=== PATIENT | male | born 1945 | race Caucasian/White ===

== ENCOUNTER 2018-07-09 15:01 | Inpatient (IN) | payer MEDICARE ==
[~2018-07-09] VITALS: Ht 180.3 cm; Wt 110.2 kg
--- NOTE | 2018-07-09 15:34 | NUR ---
Pt presents to ED for CP starting at 1100. Pt states significant hx of CAD. Pain relieved by nitro x1. 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 Pt in NSR at this time. NAD.
[2018-07-09 15:38] LABS: BASOPHILS # (AUTO) 0.04 x10^3/uL (0-0.1); BASOPHILS % (AUTO) 1 % (0-1); EOSINOPHILS % (AUTO) 1 % (1-7); LYMPHOCYTES # (AUTO) 2.03 x10^3/uL (1-3.4); LYMPHOCYTES % (AUTO) 25 % (22-44); MD NO; MEAN CORPUSCULAR HEMOGLOBIN 28.6 pg (27.5-34.5); MEAN CORPUSCULAR HGB CONC 33.2 g/dL (33.2-36.2); MEAN CORPUSCULAR VOLUME 86.3 fL (81-97); MEAN PLATELET VOLUME 9.3 fL (7.4-10.4); MONOCYTES # (AUTO) 0.77 x10^3/uL (0.2-0.8); MONOCYTES % (AUTO) 10 % (2-9); NEUTROPHILS # (AUTO) 5.22 x10^3/uL (1.8-6.8); NEUTROPHILS % (AUTO) 64 % (42-75); PLATELET COUNT 207 x10^3/uL (130-400); RED BLOOD COUNT 5.11 x10^6/uL (4.38-5.82); RED CELL DISTRIBUTION WIDTH 14.1 % (9.4-14.8)
[2018-07-09] MEDS ORDERED: METO50TA82 PO (15:42)
[2018-07-09] MEDS ORDERED: LOSA25TA25 PO (15:42)
[2018-07-09 15:45] LABS: ALANINE AMINOTRANSFERASE 31 U/L (12-78); ALBUMIN 4.1 g/dL (3.4-5.0); ANION GAP 7 mmol/L (5-15); CALCIUM 8.8 mg/dL (8.5-10.1); CHLORIDE 105 mmol/L (98-107); CREATININE 1.02 mg/dL (0.7-1.3)
[2018-07-09 15:49] LABS: ALKALINE PHOSPHATASE 70 U/L (45-117); BILIRUBIN,TOTAL 0.3 mg/dL (0.2-1.0); TOTAL PROTEIN 7.2 g/dL (6.4-8.2)
[2018-07-09 15:55] LABS: TROPONIN I 0.212 ng/mL (0.000-0.045)
[2018-07-09] MEDS ORDERED: HEPARIN 5,000 UNITS/ML, 1ML IV ONE (16:30)
[2018-07-09] MEDS ORDERED: HEPARIN 25,000 UNITS/500ML PMX 500 ML IV PRN (16:30)
[2018-07-09 16:31] LABS: INTERNATIONAL NORMALIZED RATIO 1.01 (0.93-1.1); PROTHROMBIN TIME 10.6 Seconds (9.6-11.5)
--- NOTE | 2018-07-09 16:41 | NUR ---
BEER BREWER AT BEDSIDE. ANTIXA ORDERED PRIOR TO HEPARIN STARTING.
[2018-07-09] MEDS ORDERED: HEPARIN 25,000 UNITS/500ML PMX 500 ML ONE (16:45)
[2018-07-09] MEDS ORDERED: HEPARIN 5,000 UNITS/ML, 1ML ONE (16:45)
--- NOTE | 2018-07-09 16:59 | NUR ---
ANTIXA DRAWN PRIOR TO HEPARIN STARTED.
[2018-07-09] MEDS ORDERED: morphine SULFATE 10 MG/ML, 1ML IV PRN (17:00)
[2018-07-09] MEDS ORDERED: NITROGLYCERIN 0.4 MG BOTTLE (25 TABS) SL PRN ×2 (17:00)
[2018-07-09] MEDS ORDERED: NITROGLYCERIN 0.4 MG/SPRAY SL PRN (17:00)
[2018-07-09] MEDS ORDERED: morphine SULFATE 10 MG/ML, 1ML IVPush PRN (17:00)
[2018-07-09] MEDS ORDERED: ACETAMINOPHEN 325 MG TABLET PO PRN (17:00)
[2018-07-09] MEDS ORDERED: LABETALOL 5MG/ML, 20ML IVPush PRN (17:00)
[2018-07-09] MEDS ORDERED: NITROGLYCERIN SINGLE TAB 0.4 MG SL PRN (17:00)
[2018-07-09] MEDS ORDERED: ONDANSETRON 2MG/ML, 2ML IVPush PRN (17:00)
[2018-07-09 17:02] LABS: CHOL/HDL RATIO 6.4; LDL/HDL RATIO 3.2 (0.5-3.0)
[2018-07-09 18:51] LABS: TROPONIN I 0.293 ng/mL (0.000-0.045)
[2018-07-09 21:20] LABS: TROPONIN I 0.415 ng/mL (0.000-0.045)
[2018-07-09] MEDS ORDERED: DIPHENHYDRAMINE 25 MG CAPSULE ONE (21:46)
[2018-07-09] MEDS: CARVEDILOL 12.5 MG TABLET PO SCH (21:48)
[2018-07-09] MEDS: SODIUM CHLORIDE 0.9% 1,000 ML IV SCH (21:48)
[2018-07-09] MEDS: ATORVASTATIN 80 MG TABLET PO SCH (21:48)
[2018-07-09] MEDS: SODIUM CHLORIDE FLUSH 10ML SYR IVF SCH (21:49)
[2018-07-09 21:57] VITALS: BP 147/87
[2018-07-09] MEDS ORDERED: DIPHENHYDRAMINE 25 MG CAPSULE PO PRN (22:00)
[2018-07-10] MEDS: HEPARIN 5,000 UNITS/ML, 1ML IV PRN ×2 (00:02→06:41)
[2018-07-10 00:38] VITALS: BP 121/71
[2018-07-10 01:45] LABS: TROPONIN I 0.671 ng/mL (0.000-0.045)
[2018-07-10 04:16] LABS: CHOLESTEROL, TOTAL 188 mg/dL (140-239); TRIGLYCERIDES 286 mg/dL (50-200); VLDL CHOLESTEROL 57 mg/dL (0-25)
[2018-07-10 04:20] LABS: CHOL/HDL RATIO 6.1; HDL CHOL % 16 % (26-37); HDL CHOLESTEROL (DIRECT) 31 mg/dL (40-60); LDL CHOLESTEROL,CALCULATED 100 mg/dL (54-169); LDL/HDL RATIO 3.2 (0.5-3.0); TROPONIN I 0.712 ng/mL (0.000-0.045)
[2018-07-10] MEDS ORDERED: ASPIRIN 81 MG TABLET EC PO SCH (06:00)
[2018-07-10] MEDS ORDERED: ASPIRIN 325 MG TABLET EC PO SCH (06:00)
[2018-07-10] MEDS: CARVEDILOL 12.5 MG TABLET PO SCH ×2 (06:02→17:56)
[2018-07-10 06:37] LABS: TROPONIN I 0.845 ng/mL (0.000-0.045)
[2018-07-10 08:00] VITALS: BP 105/66
[2018-07-10] MEDS: LOSARTAN 50MG TABLET PO SCH (09:00)
[2018-07-10] MEDS: SODIUM CHLORIDE FLUSH 10ML SYR IVF SCH ×2 (09:00→20:32)
[2018-07-10] MEDS ORDERED: MIDAZOLAM 1 MG/ML, 5ML ONE (11:52)
[2018-07-10] MEDS ORDERED: BIVALIRUDIN 250 MG ONE ×2 (11:52→13:26)
[2018-07-10] MEDS ORDERED: HEPARIN 1,000 UNITS/ML, 10ML ONE (11:52)
[2018-07-10] MEDS ORDERED: TICAGRELOR 90 MG TABLET ONE (11:52)
[2018-07-10] MEDS ORDERED: FENTANYL PF 100 MCG/2ML ONE (11:52)
[2018-07-10] MEDS ORDERED: VERAPAMIL 2.5 MG/ML, 2ML ONE (11:53)
[2018-07-10] MEDS ORDERED: LIDOCAINE-MPF 1%, 5ML ONE (11:53)
[2018-07-10] MEDS ORDERED: LIDOCAINE 1%, 20ML ONE (12:52)
[2018-07-10] MEDS: SODIUM CHLORIDE 0.9% 1,000 ML IV SCH ×3 (12:53→17:40)
[2018-07-10] MEDS ORDERED: ASPIRIN 325 MG TABLET EC ONE (13:33)
[2018-07-10] MEDS ORDERED: BIVALIRUDIN 250 MG in SODIUM CHLORIDE 0.9% 50 ML IV SCH (13:35)
[2018-07-10] MEDS ORDERED: SODIUM CHLORIDE 0.9% 1,000 ML IV SCH (13:35)
[2018-07-10 20:10] VITALS: BP 120/70
[2018-07-10] MEDS: TICAGRELOR 90 MG TABLET PO SCH (20:31)
[2018-07-10] MEDS: ATORVASTATIN 80 MG TABLET PO SCH (20:32)
[2018-07-11] MEDS: SODIUM CHLORIDE 0.9% 1,000 ML IV SCH ×2 (00:20→06:32)
[2018-07-11 00:59] VITALS: BP 133/68
[2018-07-11 05:03] VITALS: BP 131/70
[2018-07-11] MEDS: CARVEDILOL 12.5 MG TABLET PO SCH (05:06)
[2018-07-11 05:25] LABS: ALBUMIN 3.5 g/dL (3.4-5.0); ANION GAP 4 mmol/L (5-15); CALCIUM 8.5 mg/dL (8.5-10.1); CHLORIDE 108 mmol/L (98-107)
[2018-07-11 05:32] LABS: ALANINE AMINOTRANSFERASE 28 U/L (12-78); ALKALINE PHOSPHATASE 65 U/L (45-117); BILIRUBIN,TOTAL 1.4 mg/dL (0.2-1.0); CREATININE 0.86 mg/dL (0.7-1.3); TOTAL PROTEIN 6.6 g/dL (6.4-8.2)
[2018-07-11 08:55] VITALS: BP 117/62
[2018-07-11] MEDS ORDERED: ASPIRIN 81 MG TABLET EC PO SCH (09:00)
[2018-07-11] MEDS: LOSARTAN 50MG TABLET PO SCH (09:54)
[2018-07-11] MEDS: TICAGRELOR 90 MG TABLET PO SCH (09:54)
[2018-07-11] MEDS ORDERED: NITR0.4T SL (13:37)
[2018-07-11] MEDS ORDERED: TICA90TA PO (13:37)
[2018-07-11] MEDS ORDERED: ATOR-2 PO (13:37)
[2018-07-11] MEDS ORDERED: CARV12.543 PO (13:37)
[2018-07-11] MEDS ORDERED: ASPI81TA45 PO (13:37)
[2018-07-11] MEDS ORDERED: LOSA50TA2 PO (13:37)
[2018-07-11 14:05] VITALS: BP 114/69
== END 2018-07-11 15:21 | disposition home or self-care (01) | DRG 246 ==
LOC: ED 15:59 → EDIP 16:45 → 5SO 21:11 → DCLOUNGE 07-11 15:21
PROVIDERS: ADMIT Hospitalist; ATTEND Hospitalist
PROC: 027034Z Dilation of Coronary Artery, One Artery with Drug-eluting Intraluminal Device, Percutaneous Approach (ICD-10-PCS; principal; 2018-07-11)
PROC: 4A023N7 Measurement of Cardiac Sampling and Pressure, Left Heart, Percutaneous Approach (ICD-10-PCS; 2018-07-11)
PROC: B2111ZZ Fluoroscopy of Multiple Coronary Arteries using Low Osmolar Contrast (ICD-10-PCS; 2018-07-11)
PROC: B2151ZZ Fluoroscopy of Left Heart using Low Osmolar Contrast (ICD-10-PCS; 2018-07-11)
DX: I21.4 Non-ST elevation (NSTEMI) myocardial infarction (principal); N17.0 Acute kidney failure with tubular necrosis; E66.9 Obesity, unspecified; E78.2 Mixed hyperlipidemia; I08.3 Combined rheumatic disorders of mitral, aortic and tricuspid valves; I10 Essential (primary) hypertension; Z96.652 Presence of left artificial knee joint; I25.110 Atherosclerotic heart disease of native coronary artery with unstable angina pectoris; I25.2 Old myocardial infarction; Z82.49 Family history of ischemic heart disease and other diseases of the circulatory system; Z87.891 Personal history of nicotine dependence; Z91.19 Patient's noncompliance with other medical treatment and regimen; Z68.33 Body mass index [BMI] 33.0-33.9, adult; Z95.5 Presence of coronary angioplasty implant and graft
CPT/HCPCS: 36415; 71045; 80053; 80061; 83735; 83880; 84484; 85025; 85520; 85610; 85730; 93005; 93306; 93458; 96374; 96375; 99156; 99157; 99291; C1760; C1769; C1894; C9600; G0378; J0583; J1644; J2250; J3010; J3490; C1725; C1874; C1887; J2270; J7030; Q0163; Q9967

== ENCOUNTER 2020-02-25 11:12 | Inpatient (IN) | payer MEDICARE ==
[~2020-02-25] VITALS: Ht 180.3 cm; Wt 103.0 kg
[~2020-02-25 11:12] MED LIST: ASPI81TA45 PO; ATOR-2 PO; CARV12.543 PO; LOSA25TA25 PO; LOSA50TA2 PO; METO50TA82 PO; NITR0.4T41 SL; TICA90TA PO
[2020-02-25] MEDS ORDERED: SODIUM CHLORIDE FLUSH 10ML SYR IVF ONE (12:00)
[2020-02-25] MEDS ORDERED: ONDANSETRON 2MG/ML, 2ML IVPush ONE (12:00)
--- NOTE | 2020-02-25 12:00 | NUR ---
KNEE XRAY OBTAINED, LAB AT BEDSIDE FOR FULL SET OF LABS INCLUDING BLOOD CULTURES X2 ULTRASOUND OBTAINED +2 RIGHT FOOT DP PULSE
[2020-02-25 12:21] LABS: BASOPHILS % (AUTO) 0 % (0-1); EOSINOPHILS % (AUTO) 0 % (1-7); LYMPHOCYTES % (AUTO) 5 % (22-44); MEAN CORPUSCULAR HEMOGLOBIN 29.9 pg (27.5-34.5); MEAN CORPUSCULAR HGB CONC 32.8 g/dL (33.2-36.2); MEAN PLATELET VOLUME 7.5 fL (7.4-10.4); MONOCYTES % (AUTO) 11 % (2-9); NEUTROPHILS % (AUTO) 84 % (42-75); PLATELET COUNT 304 x10^3/uL (130-400); RED BLOOD COUNT 3.12 x10^6/uL (4.38-5.82); RED CELL DISTRIBUTION WIDTH 13.7 % (9.4-14.8)
[2020-02-25] MEDS ORDERED: HYDROmorphone 1 MG/ML, 1ML INJ ONE ×2 (12:24→13:54)
[2020-02-25] MEDS ORDERED: ONDANSETRON 2MG/ML, 2ML ONE (12:24)
[2020-02-25 12:27] LABS: ANION GAP 8 mmol/L (5-15); CALCIUM 8.3 mg/dL (8.5-10.1); CHLORIDE 95 mmol/L (98-107); CREATININE 0.98 mg/dL (0.7-1.3)
[2020-02-25 12:28] LABS: ALANINE AMINOTRANSFERASE 29 U/L (12-78); ALBUMIN 2.9 g/dL (3.4-5.0)
[2020-02-25 12:30] LABS: ALKALINE PHOSPHATASE 86 U/L (45-117); BILIRUBIN,TOTAL 1.2 mg/dL (0.2-1.0); TOTAL PROTEIN 6.5 g/dL (6.4-8.2)
[2020-02-25] MEDS ORDERED: ACETAMINOPHEN 500 MG TABLET PO ONE (12:30)
[2020-02-25] MEDS ORDERED: ACETAMINOPHEN 500 MG TABLET ONE (12:31)
[2020-02-25] MEDS: HYDROmorphone 2 MG/ML, 1ML IVPush PRN ×2 (12:34→14:03)
[2020-02-25 12:50] LABS: MD SCAN
[2020-02-25] MEDS ORDERED: SODIUM CHLORIDE FLUSH 10ML SYR IVF PRN (13:00)
[2020-02-25] MEDS ORDERED: CEFTRIAXONE PMX 1GM/50ML 50 ML IVPB ONE (13:00)
--- NOTE | 2020-02-25 13:05 | NUR ---
With reassment- dp remains 2+, pox improved to 96% with 2l nc Pain improved to 0/10 Updated on estimated pox
--- NOTE | 2020-02-25 13:29 | NUR ---
abx/ivf plan discussed with provider- to treat with rocephin, ivf at 250ml/hr (no vitals signs or assessed signs of sirs or shock)
[2020-02-25] MEDS ORDERED: SODIUM CHLORIDE 0.9% 1,000 ML IV ONE (13:30)
[2020-02-25] MEDS ORDERED: CLOP75TA52 PO (13:48)
[2020-02-25] MEDS ORDERED: CARV6.2512 PO (13:48)
--- NOTE | 2020-02-25 13:50 | NUR ---
medicate dper emar (additional dose of pain medication as pain rebounded to 6/10, abx (cultures x2 already drawn as well as ua) as well maint ivf)).
[2020-02-25] MEDS ORDERED: CEFTRIAXONE PMX 1GM/50ML 50 ML ONE (13:54)
[2020-02-25 13:55] LABS: MICROSCOPIC NOT IND
--- NOTE | 2020-02-25 14:02 | NUR ---
to ct then to inpatient room
[2020-02-25] MEDS ORDERED: OMNIPAQUE 350 MG/ML, 100ML BOTTLE ONE (14:22)
[2020-02-25] MEDS ORDERED: ONDANSETRON 2MG/ML, 2ML IVPush PRN (15:00)
[2020-02-25] MEDS ORDERED: POLYETHYLENE GLYCOL 17 GM PACKET PO PRN (15:00)
[2020-02-25] MEDS ORDERED: PROMETHAZINE 25 MG/ML, 1ML IM PRN (15:00)
[2020-02-25] MEDS ORDERED: ENOXAPARIN 40 MG/0.4 ML SQ SCH (15:00)
[2020-02-25] MEDS: SODIUM CHLORIDE 0.9% 1,000 ML IV SCH ×3 (15:00→17:21)
[2020-02-25] MEDS ORDERED: ONDANSETRON ODT 4 MG PO PRN (15:00)
[2020-02-25] MEDS ORDERED: BISACODYL 10 MG SUPP PR PRN (15:00)
[2020-02-25] MEDS ORDERED: DOCUSATE 100 MG CAPSULE PO PRN (15:00)
[2020-02-25] MEDS ORDERED: ACETAMINOPHEN 325 MG TABLET PO PRN (15:00)
[2020-02-25] MEDS ORDERED: VANCOMYCIN PER PHARMACY MC PRN (15:30)
[2020-02-25] MEDS ORDERED: PHARMACOKINETIC MONITORING MC PRN (15:30)
[2020-02-25 15:48] LABS: FREE T4 (FREE THYROXINE) 1.52 ng/dL (0.76-1.46)
[2020-02-25 16:20] LABS: HCT (SEDRATE) 28.2 % (39.2-51.8)
[2020-02-25] MEDS: VANCOMYCIN 2,000 MG in SODIUM CHLORIDE 0.9% 500 ML IV SCH (17:00)
[2020-02-25] MEDS ORDERED: DIPHENHYDRAMINE 25 MG CAPSULE PO PRN (17:30)
[2020-02-25] MEDS: OXYcodone/APAP 5/325MG TABLET PO PRN ×3 (17:45→22:35)
[2020-02-25] MEDS ORDERED: ATORVASTATIN 80 MG TABLET PO SCH (21:00)
[2020-02-25 21:09] VITALS: BP 134/73
[2020-02-25] MEDS: CARVEDILOL 6.25 MG TABLET PO SCH (21:19)
[2020-02-26 02:00] VITALS: BP 122/68
[2020-02-26] MEDS: SODIUM CHLORIDE 0.9% 1,000 ML IV SCH (05:33)
[2020-02-26] MEDS: OXYcodone/APAP 5/325MG TABLET PO PRN ×2 (05:33→23:23)
[2020-02-26 05:59] LABS: BASOPHILS % (AUTO) 0 % (0-1); EOSINOPHILS % (AUTO) 0 % (1-7); LYMPHOCYTES % (AUTO) 5 % (22-44); MEAN CORPUSCULAR HEMOGLOBIN 29.7 pg (27.5-34.5); MEAN CORPUSCULAR HGB CONC 32.8 g/dL (33.2-36.2); MEAN PLATELET VOLUME 7.6 fL (7.4-10.4); MONOCYTES % (AUTO) 8 % (2-9); NEUTROPHILS % (AUTO) 86 % (42-75); PLATELET COUNT 411 x10^3/uL (130-400); RED BLOOD COUNT 3.34 x10^6/uL (4.38-5.82); RED CELL DISTRIBUTION WIDTH 14.2 % (9.4-14.8)
[2020-02-26 06:11] LABS: ALBUMIN 2.7 g/dL (3.4-5.0); CHLORIDE 98 mmol/L (98-107)
[2020-02-26 06:36] LABS: ALANINE AMINOTRANSFERASE 26 U/L (12-78); ANION GAP 9 mmol/L (5-15); CALCIUM 8.2 mg/dL (8.5-10.1); CHOLESTEROL, TOTAL 72 mg/dL (140-239); CREATININE 0.96 mg/dL (0.7-1.3); TRIGLYCERIDES 73 mg/dL (50-200); VLDL CHOLESTEROL 15 mg/dL (0-25)
[2020-02-26 06:38] LABS: ALKALINE PHOSPHATASE 102 U/L (45-117); HDL CHOLESTEROL (DIRECT) 30 mg/dL (40-60); TOTAL PROTEIN 6.4 g/dL (6.4-8.2)
[2020-02-26 06:49] LABS: MD SCAN
[2020-02-26 06:59] LABS: CHOL/HDL RATIO 2.5; HDL CHOL % 40 % (26-37); LDL CHOLESTEROL,CALCULATED 26 mg/dL (54-169); LDL/HDL RATIO 0.9 (0.5-3.0)
[2020-02-26 08:59] VITALS: BP 125/62
[2020-02-26] MEDS: CARVEDILOL 6.25 MG TABLET PO SCH ×2 (09:10→21:33)
[2020-02-26] MEDS: LOSARTAN 50MG TABLET PO SCH (09:10)
[2020-02-26] MEDS: CLOPIDOGREL 75 MG TABLET PO SCH (09:10)
[2020-02-26] MEDS: morphine SULFATE 10 MG/ML, 1ML IVPush PRN ×2 (09:16→12:47)
[2020-02-26] MEDS ORDERED: OMNIPAQUE 350 MG/ML, 150 ML BOTTLE ONE (09:58)
[2020-02-26] MEDS ORDERED: AMPICILLIN/SULBACTAM 3 GM in SODIUM CHLORIDE 0.9% 100 ML IV SCH (10:30)
[2020-02-26] MEDS: VANCOMYCIN 2,000 MG in SODIUM CHLORIDE 0.9% 500 ML IV SCH (10:38)
[2020-02-26] MEDS: DAPTOMYCIN 850 MG in SODIUM CHLORIDE 0.9% 100 ML IVPB SCH (13:00)
[2020-02-26] MEDS ORDERED: EPINEPHRINE 1 MG/ML, 1ML ONE (13:12)
[2020-02-26] MEDS ORDERED: BUPIVACAINE/PF 0.5% ONE (13:12)
[2020-02-26] MEDS ORDERED: BACITRACIN 50,000 UNIT ONE (13:12)
[2020-02-26] MEDS ORDERED: CHLORHEXIDINE 15 ML UDC ONE (13:18)
[2020-02-26 13:23] VITALS: BP 118/72
[2020-02-26] MEDS ORDERED: FENTANYL PF 250 MCG/5ML ONE (13:24)
[2020-02-26] MEDS ORDERED: LACTATED RINGERS 1,000 ML IV SCH (13:30)
[2020-02-26] MEDS ORDERED: VANCOMYCIN 1,000 MG ONE (14:10)
[2020-02-26] MEDS ORDERED: TRANEXAMIC ACID 100 MG/ML, 10ML ONE ×2 (14:10→15:10)
[2020-02-26] MEDS ORDERED: EPHEDRINE 50 MG/ML, 1ML ONE (14:40)
[2020-02-26] MEDS ORDERED: ROCURONIUM 10MG/ML,5ML ONE (14:40)
[2020-02-26] MEDS ORDERED: SUCCINYLCHOLINE 20 MG/ML, 10ML ONE (14:40)
[2020-02-26] MEDS ORDERED: ONDANSETRON 2MG/ML, 2ML ONE (14:40)
[2020-02-26] MEDS ORDERED: PROPOFOL 10 MG/ML, 20ML ONE (14:41)
[2020-02-26] MEDS ORDERED: PHENYLEPHRINE 10 MG/ML ONE (14:43)
[2020-02-26] MEDS ORDERED: LABETALOL 5MG/ML, 20ML IV PRN (15:00)
[2020-02-26] MEDS ORDERED: ONDANSETRON 2MG/ML, 2ML IVPush PRN (15:00)
[2020-02-26] MEDS ORDERED: PROMETHAZINE 25 MG/ML, 1ML IVPush PRN (15:00)
[2020-02-26] MEDS ORDERED: OXYcodone 5 MG/5 ML ORAL.SOL UDC PO PRN (15:00)
[2020-02-26] MEDS ORDERED: hydrALAzine 20 MG/ML, 1ML IV PRN (15:00)
[2020-02-26] MEDS ORDERED: FENTANYL PF 100 MCG/2ML ONE ×3 (15:45→17:06)
[2020-02-26] MEDS ORDERED: OXYcodone 5 MG/5 ML ORAL.SOL UDC ONE (16:42)
[2020-02-26] MEDS: FENTANYL PF 100 MCG/2ML IV PRN ×4 (16:50→17:15)
[2020-02-26] MEDS ORDERED: HYDROmorphone 1 MG/ML, 1ML INJ ONE (17:40)
[2020-02-26] MEDS: HYDROmorphone 1 MG/ML, 1ML INJ IVPush PRN ×2 (17:42→17:52)
[2020-02-26 21:27] VITALS: BP 153/73
[2020-02-26] MEDS: ATORVASTATIN 10 MG TABLET PO SCH (21:32)
[2020-02-27 00:53] VITALS: BP 135/70
[2020-02-27] MEDS: OXYcodone/APAP 5/325MG TABLET PO PRN ×5 (03:30→21:03)
[2020-02-27 04:14] VITALS: BP 163/77
[2020-02-27] MEDS: CLOPIDOGREL 75 MG TABLET PO SCH (08:31)
[2020-02-27] MEDS: LOSARTAN 50MG TABLET PO SCH (08:31)
[2020-02-27] MEDS: CARVEDILOL 6.25 MG TABLET PO SCH ×2 (08:31→21:03)
[2020-02-27] MEDS: [UNRECOGNIZED DRUG - REMARK] XX SCH ×4 (09:00→20:00)
[2020-02-27 09:39] VITALS: BP 119/71
[2020-02-27] MEDS: DAPTOMYCIN 850 MG in SODIUM CHLORIDE 0.9% 100 ML IVPB SCH (12:38)
[2020-02-27 14:18] VITALS: BP 111/62
[2020-02-27 19:54] VITALS: BP 132/74
[2020-02-27 20:58] VITALS: BP 160/76
[2020-02-27] MEDS: ATORVASTATIN 10 MG TABLET PO SCH (21:03)
[2020-02-28 01:26] VITALS: BP 158/78
[2020-02-28] MEDS: OXYcodone/APAP 5/325MG TABLET PO PRN ×6 (01:34→23:28)
[2020-02-28] MEDS: [UNRECOGNIZED DRUG - REMARK] XX SCH ×6 (04:00→20:00)
[2020-02-28 06:03] LABS: BASOPHILS % (AUTO) 0 % (0-1); EOSINOPHILS % (AUTO) 2 % (1-7); LYMPHOCYTES % (AUTO) 6 % (22-44); MEAN CORPUSCULAR HEMOGLOBIN 29.3 pg (27.5-34.5); MEAN CORPUSCULAR HGB CONC 33.2 g/dL (33.2-36.2); MEAN PLATELET VOLUME 7.5 fL (7.4-10.4); MONOCYTES % (AUTO) 7 % (2-9); NEUTROPHILS % (AUTO) 85 % (42-75); PLATELET COUNT 356 x10^3/uL (130-400); RED BLOOD COUNT 2.92 x10^6/uL (4.38-5.82); RED CELL DISTRIBUTION WIDTH 14.2 % (9.4-14.8)
[2020-02-28 06:04] LABS: ANION GAP 8 mmol/L (5-15); CALCIUM 8.2 mg/dL (8.5-10.1); CHLORIDE 101 mmol/L (98-107)
[2020-02-28 06:05] LABS: CREATININE 0.64 mg/dL (0.7-1.3)
[2020-02-28 06:45] LABS: MD SCAN
[2020-02-28 07:31] VITALS: BP 147/73
[2020-02-28] MEDS: CLOPIDOGREL 75 MG TABLET PO SCH (08:59)
[2020-02-28] MEDS: LOSARTAN 50MG TABLET PO SCH (09:00)
[2020-02-28] MEDS: CARVEDILOL 6.25 MG TABLET PO SCH ×2 (09:00→20:50)
[2020-02-28] MEDS ORDERED: CEFAZOLIN 2,000 MG in SODIUM CHLORIDE 0.9% 50 ML IV SCH (09:30)
[2020-02-28] MEDS: CEFAZOLIN PMX 2GM/50ML 50 ML IVPB SCH ×2 (12:12→19:36)
[2020-02-28 14:15] VITALS: BP 121/68
[2020-02-28 19:21] VITALS: BP 134/80
[2020-02-28] MEDS: ATORVASTATIN 10 MG TABLET PO SCH (20:50)
[2020-02-28] MEDS: RIFAMPIN 300 MG CAPSULE PO SCH (20:50)
[2020-02-29 01:59] VITALS: BP 134/72
[2020-02-29] MEDS: OXYcodone/APAP 5/325MG TABLET PO PRN ×5 (03:21→19:47)
[2020-02-29] MEDS: CEFAZOLIN PMX 2GM/50ML 50 ML IVPB SCH ×4 (03:21→21:19)
[2020-02-29] MEDS: [UNRECOGNIZED DRUG - REMARK] XX SCH ×3 (04:00→08:24)
[2020-02-29 07:07] LABS: BASOPHILS % (AUTO) 0 % (0-1); EOSINOPHILS % (AUTO) 1 % (1-7); LYMPHOCYTES % (AUTO) 9 % (22-44); MEAN CORPUSCULAR HEMOGLOBIN 28.5 pg (27.5-34.5); MEAN PLATELET VOLUME 7.2 fL (7.4-10.4); MONOCYTES % (AUTO) 8 % (2-9); NEUTROPHILS % (AUTO) 82 % (42-75); PLATELET COUNT 436 x10^3/uL (130-400); RED BLOOD COUNT 3.07 x10^6/uL (4.38-5.82); RED CELL DISTRIBUTION WIDTH 14.6 % (9.4-14.8)
[2020-02-29 07:12] LABS: ALBUMIN 2.2 g/dL (3.4-5.0); ANION GAP 3 mmol/L (5-15); CALCIUM 7.8 mg/dL (8.5-10.1); CHLORIDE 103 mmol/L (98-107)
[2020-02-29 07:20] LABS: ALANINE AMINOTRANSFERASE 44 U/L (12-78); ALKALINE PHOSPHATASE 137 U/L (45-117); BILIRUBIN,TOTAL 0.7 mg/dL (0.2-1.0); CREATININE 0.71 mg/dL (0.7-1.3); TOTAL PROTEIN 5.7 g/dL (6.4-8.2)
[2020-02-29 07:24] VITALS: BP 179/81
[2020-02-29] MEDS: hydrALAzine 20 MG/ML, 1ML IVPush PRN (07:35)
[2020-02-29 08:23] LABS: MD SCAN
[2020-02-29 08:28] VITALS: BP 137/72
[2020-02-29] MEDS: LOSARTAN 50MG TABLET PO SCH (08:29)
[2020-02-29] MEDS: RIFAMPIN 300 MG CAPSULE PO SCH ×2 (08:29→20:16)
[2020-02-29] MEDS: CLOPIDOGREL 75 MG TABLET PO SCH (08:29)
[2020-02-29] MEDS: CARVEDILOL 6.25 MG TABLET PO SCH ×2 (08:30→20:16)
[2020-02-29 08:42] LABS: HCT (SEDRATE) 27.4 % (39.2-51.8)
[2020-02-29] MEDS: ENOXAPARIN 40 MG/0.4 ML SQ SCH (11:28)
[2020-02-29 13:47] VITALS: BP 132/64
[2020-02-29 20:05] VITALS: BP 172/76
[2020-02-29] MEDS: ATORVASTATIN 10 MG TABLET PO SCH (20:17)
[2020-03-01] VITALS (10 sets, daily range): BP systolic 125–199; BP diastolic 70–82
[2020-03-01] MEDS: OXYcodone/APAP 5/325MG TABLET PO PRN ×6 (00:10→20:44)
[2020-03-01] MEDS: CEFAZOLIN PMX 2GM/50ML 50 ML IVPB SCH ×3 (04:15→20:44)
[2020-03-01 05:12] LABS: BASOPHILS % (AUTO) 1 % (0-1); EOSINOPHILS % (AUTO) 2 % (1-7); LYMPHOCYTES % (AUTO) 11 % (22-44); MEAN CORPUSCULAR HEMOGLOBIN 29.1 pg (27.5-34.5); MEAN CORPUSCULAR HGB CONC 33.1 g/dL (33.2-36.2); MONOCYTES % (AUTO) 9 % (2-9); NEUTROPHILS % (AUTO) 78 % (42-75); PLATELET COUNT 490 x10^3/uL (130-400); RED BLOOD COUNT 3.16 x10^6/uL (4.38-5.82); RED CELL DISTRIBUTION WIDTH 14.6 % (9.4-14.8)
[2020-03-01 05:23] LABS: ANION GAP 5 mmol/L (5-15); CALCIUM 8.1 mg/dL (8.5-10.1); CHLORIDE 103 mmol/L (98-107); CREATININE 0.63 mg/dL (0.7-1.3)
[2020-03-01 05:47] LABS: MD SCAN
[2020-03-01] MEDS: hydrALAzine 20 MG/ML, 1ML IVPush PRN (08:07)
[2020-03-01] MEDS: RIFAMPIN 300 MG CAPSULE PO SCH ×2 (08:21→20:43)
[2020-03-01] MEDS: CARVEDILOL 6.25 MG TABLET PO SCH ×2 (08:22→20:42)
[2020-03-01] MEDS: CLOPIDOGREL 75 MG TABLET PO SCH (08:22)
[2020-03-01] MEDS: LOSARTAN 50MG TABLET PO SCH (08:22)
[2020-03-01] MEDS: CALCIUM POLYCARBOPHIL 625 MG TABLET PO SCH ×2 (09:38→22:14)
[2020-03-01] MEDS: ENOXAPARIN 40 MG/0.4 ML SQ SCH (12:12)
[2020-03-01] MEDS: LABETALOL 5MG/ML, 20ML IVPush PRN ×2 (16:20→19:23)
[2020-03-01] MEDS: ATORVASTATIN 10 MG TABLET PO SCH (20:43)
[2020-03-02] MEDS: LABETALOL 5MG/ML, 20ML IVPush PRN (00:26)
[2020-03-02] MEDS: OXYcodone/APAP 5/325MG TABLET PO PRN ×5 (01:19→20:15)
[2020-03-02 01:30] VITALS: BP 157/77
[2020-03-02] MEDS: CEFAZOLIN PMX 2GM/50ML 50 ML IVPB SCH ×3 (04:33→20:14)
[2020-03-02 06:12] LABS: BASOPHILS % (AUTO) 1 % (0-1); EOSINOPHILS % (AUTO) 1 % (1-7); LYMPHOCYTES % (AUTO) 15 % (22-44); MEAN CORPUSCULAR HEMOGLOBIN 28.5 pg (27.5-34.5); MEAN CORPUSCULAR HGB CONC 32.2 g/dL (33.2-36.2); MEAN PLATELET VOLUME 6.8 fL (7.4-10.4); MONOCYTES % (AUTO) 9 % (2-9); NEUTROPHILS % (AUTO) 73 % (42-75); PLATELET COUNT 518 x10^3/uL (130-400); RED BLOOD COUNT 3.22 x10^6/uL (4.38-5.82); RED CELL DISTRIBUTION WIDTH 14.7 % (9.4-14.8)
[2020-03-02 06:33] LABS: MD NO
[2020-03-02 07:44] VITALS: BP 149/65
[2020-03-02] MEDS: CARVEDILOL 12.5 MG TABLET PO SCH ×2 (09:47→20:16)
[2020-03-02] MEDS: CLOPIDOGREL 75 MG TABLET PO SCH (09:47)
[2020-03-02] MEDS: LOSARTAN 50MG TABLET PO SCH (09:47)
[2020-03-02] MEDS: RIFAMPIN 300 MG CAPSULE PO SCH ×2 (09:47→20:15)
[2020-03-02] MEDS: CALCIUM POLYCARBOPHIL 625 MG TABLET PO SCH ×2 (09:48→20:15)
[2020-03-02] MEDS: ENOXAPARIN 40 MG/0.4 ML SQ SCH (12:04)
[2020-03-02 12:24] VITALS: BP 151/64
[2020-03-02 18:40] VITALS: BP 182/83
[2020-03-02] MEDS: ATORVASTATIN 10 MG TABLET PO SCH (20:16)
[2020-03-03] MEDS: OXYcodone/APAP 5/325MG TABLET PO PRN ×5 (00:14→20:37)
[2020-03-03 02:43] VITALS: BP 154/72
[2020-03-03] MEDS: CEFAZOLIN PMX 2GM/50ML 50 ML IVPB SCH ×3 (04:48→20:20)
[2020-03-03 05:09] LABS: BASOPHILS % (AUTO) 1 % (0-1); EOSINOPHILS % (AUTO) 1 % (1-7); LYMPHOCYTES % (AUTO) 14 % (22-44); MEAN CORPUSCULAR HEMOGLOBIN 29.3 pg (27.5-34.5); MEAN PLATELET VOLUME 6.7 fL (7.4-10.4); MONOCYTES % (AUTO) 8 % (2-9); NEUTROPHILS % (AUTO) 77 % (42-75); PLATELET COUNT 535 x10^3/uL (130-400); RED BLOOD COUNT 3.21 x10^6/uL (4.38-5.82); RED CELL DISTRIBUTION WIDTH 14.9 % (9.4-14.8)
[2020-03-03 05:15] LABS: MD NO
[2020-03-03 05:20] LABS: ANION GAP 5 mmol/L (5-15); CALCIUM 8.2 mg/dL (8.5-10.1); CHLORIDE 103 mmol/L (98-107)
[2020-03-03 05:22] LABS: CREATININE 0.62 mg/dL (0.7-1.3)
[2020-03-03 06:19] VITALS: BP 170/79
[2020-03-03] MEDS: RIFAMPIN 300 MG CAPSULE PO SCH ×2 (08:46→20:21)
[2020-03-03] MEDS: CALCIUM POLYCARBOPHIL 625 MG TABLET PO SCH ×2 (08:46→20:21)
[2020-03-03] MEDS: CLOPIDOGREL 75 MG TABLET PO SCH (08:47)
[2020-03-03] MEDS: LOSARTAN 50MG TABLET PO SCH (08:47)
[2020-03-03] MEDS: CARVEDILOL 12.5 MG TABLET PO SCH (08:47)
[2020-03-03] MEDS: ENOXAPARIN 40 MG/0.4 ML SQ SCH (12:00)
[2020-03-03 14:06] VITALS: BP 169/75
[2020-03-03 20:18] VITALS: BP 182/72
[2020-03-03] MEDS: ATORVASTATIN 10 MG TABLET PO SCH (20:21)
[2020-03-03] MEDS: CARVEDILOL 25 MG TABLET PO SCH (20:21)
[2020-03-03 23:28] VITALS: BP 156/73
[2020-03-04] VITALS (8 sets, daily range): BP systolic 126–185; BP diastolic 65–78
[2020-03-04] MEDS: OXYcodone/APAP 5/325MG TABLET PO PRN ×5 (02:30→20:31)
[2020-03-04 04:42] LABS: BASOPHILS % (AUTO) 1 % (0-1); EOSINOPHILS % (AUTO) 1 % (1-7); LYMPHOCYTES % (AUTO) 16 % (22-44); MEAN CORPUSCULAR HEMOGLOBIN 28.7 pg (27.5-34.5); MEAN CORPUSCULAR HGB CONC 32.6 g/dL (33.2-36.2); MEAN PLATELET VOLUME 6.8 fL (7.4-10.4); MONOCYTES % (AUTO) 9 % (2-9); NEUTROPHILS % (AUTO) 74 % (42-75); PLATELET COUNT 581 x10^3/uL (130-400); RED BLOOD COUNT 3.32 x10^6/uL (4.38-5.82); RED CELL DISTRIBUTION WIDTH 14.6 % (9.4-14.8)
[2020-03-04 04:49] LABS: MD NO
[2020-03-04 04:51] LABS: ANION GAP 6 mmol/L (5-15); CALCIUM 8.2 mg/dL (8.5-10.1); CHLORIDE 102 mmol/L (98-107)
[2020-03-04] MEDS: CEFAZOLIN PMX 2GM/50ML 50 ML IVPB SCH ×3 (05:11→20:31)
[2020-03-04] MEDS: RIFAMPIN 300 MG CAPSULE PO SCH ×2 (07:49→20:53)
[2020-03-04] MEDS: CALCIUM POLYCARBOPHIL 625 MG TABLET PO SCH ×2 (07:49→20:49)
[2020-03-04] MEDS: CARVEDILOL 25 MG TABLET PO SCH ×2 (07:49→20:53)
[2020-03-04] MEDS: CLOPIDOGREL 75 MG TABLET PO SCH (07:50)
[2020-03-04] MEDS: LOSARTAN 50MG TABLET PO SCH (07:50)
[2020-03-04] MEDS ORDERED: BUTALB/APAP/CAFFEINE 50MG/325MG/40MG PO PRN (11:30)
[2020-03-04] MEDS: ENOXAPARIN 40 MG/0.4 ML SQ SCH (11:53)
[2020-03-04] MEDS: ATORVASTATIN 10 MG TABLET PO SCH (20:53)
[2020-03-05] VITALS (7 sets, daily range): BP systolic 138–176; BP diastolic 64–81
[2020-03-05] MEDS: OXYcodone/APAP 5/325MG TABLET PO PRN ×6 (00:33→21:21)
[2020-03-05] MEDS: CEFAZOLIN PMX 2GM/50ML 50 ML IVPB SCH ×3 (04:58→20:34)
[2020-03-05 06:13] LABS: HCT (SEDRATE) 28.7 % (39.2-51.8)
[2020-03-05 06:15] LABS: BASOPHILS % (AUTO) 1 % (0-1); EOSINOPHILS % (AUTO) 1 % (1-7); LYMPHOCYTES % (AUTO) 14 % (22-44); MEAN CORPUSCULAR HEMOGLOBIN 28.6 pg (27.5-34.5); MEAN CORPUSCULAR HGB CONC 32.7 g/dL (33.2-36.2); MEAN PLATELET VOLUME 6.8 fL (7.4-10.4); MONOCYTES % (AUTO) 8 % (2-9); NEUTROPHILS % (AUTO) 78 % (42-75); PLATELET COUNT 534 x10^3/uL (130-400); RED BLOOD COUNT 3.31 x10^6/uL (4.38-5.82)
[2020-03-05 06:20] LABS: MD NO
[2020-03-05 06:24] LABS: CHLORIDE 101 mmol/L (98-107)
[2020-03-05 06:36] LABS: ANION GAP 7 mmol/L (5-15); C-REACTIVE PROTEIN, QUANT 5.97 mg/dL (0.02-0.49); CALCIUM 8.1 mg/dL (8.5-10.1); CREATININE 0.61 mg/dL (0.7-1.3)
[2020-03-05] MEDS: CARVEDILOL 25 MG TABLET PO SCH ×2 (08:15→20:33)
[2020-03-05] MEDS: LOSARTAN 50MG TABLET PO SCH (08:16)
[2020-03-05] MEDS: RIFAMPIN 300 MG CAPSULE PO SCH ×2 (08:16→20:33)
[2020-03-05] MEDS: CALCIUM POLYCARBOPHIL 625 MG TABLET PO SCH ×2 (08:16→20:34)
[2020-03-05] MEDS: CLOPIDOGREL 75 MG TABLET PO SCH (08:16)
[2020-03-05] MEDS: ENOXAPARIN 40 MG/0.4 ML SQ SCH (12:00)
[2020-03-05] MEDS: ATORVASTATIN 10 MG TABLET PO SCH (20:33)
[2020-03-06 01:38] VITALS: BP 178/81
[2020-03-06] MEDS: OXYcodone/APAP 5/325MG TABLET PO PRN ×5 (01:41→19:52)
[2020-03-06] MEDS: CEFAZOLIN PMX 2GM/50ML 50 ML IVPB SCH ×3 (04:13→21:31)
[2020-03-06 05:38] LABS: BASOPHILS % (AUTO) 1 % (0-1); EOSINOPHILS % (AUTO) 1 % (1-7); LYMPHOCYTES % (AUTO) 14 % (22-44); MEAN CORPUSCULAR HEMOGLOBIN 28.4 pg (27.5-34.5); MEAN CORPUSCULAR HGB CONC 32.6 g/dL (33.2-36.2); MEAN PLATELET VOLUME 6.8 fL (7.4-10.4); MONOCYTES % (AUTO) 7 % (2-9); NEUTROPHILS % (AUTO) 77 % (42-75); PLATELET COUNT 545 x10^3/uL (130-400); RED BLOOD COUNT 3.38 x10^6/uL (4.38-5.82); RED CELL DISTRIBUTION WIDTH 14.9 % (9.4-14.8)
[2020-03-06 05:43] LABS: MD NO
[2020-03-06 05:47] LABS: ANION GAP 5 mmol/L (5-15); CALCIUM 8.3 mg/dL (8.5-10.1); CHLORIDE 104 mmol/L (98-107); CREATININE 0.67 mg/dL (0.7-1.3)
[2020-03-06] MEDS: LABETALOL 5MG/ML, 20ML IVPush PRN (07:38)
[2020-03-06 07:54] VITALS: BP 184/80
[2020-03-06] MEDS: CALCIUM POLYCARBOPHIL 625 MG TABLET PO SCH ×3 (08:53→20:27)
[2020-03-06] MEDS: LOSARTAN 50MG TABLET PO SCH (08:53)
[2020-03-06] MEDS: CLOPIDOGREL 75 MG TABLET PO SCH (08:53)
[2020-03-06] MEDS: CARVEDILOL 25 MG TABLET PO SCH ×2 (08:53→20:30)
[2020-03-06] MEDS: RIFAMPIN 300 MG CAPSULE PO SCH ×2 (08:53→20:30)
[2020-03-06 09:46] VITALS: BP 132/70
[2020-03-06] MEDS: ENOXAPARIN 40 MG/0.4 ML SQ SCH (12:16)
[2020-03-06 13:16] VITALS: BP 106/60
[2020-03-06 20:29] VITALS: BP 176/75
[2020-03-06] MEDS: ATORVASTATIN 10 MG TABLET PO SCH (20:30)
[2020-03-07 00:38] VITALS: BP 162/74
[2020-03-07] MEDS: OXYcodone/APAP 5/325MG TABLET PO PRN ×5 (00:58→16:59)
[2020-03-07 02:35] VITALS: BP 180/82
[2020-03-07] MEDS: CEFAZOLIN PMX 2GM/50ML 50 ML IVPB SCH ×2 (04:11→12:15)
[2020-03-07 05:44] LABS: HCT (SEDRATE) 30.2 % (39.2-51.8)
[2020-03-07 05:46] LABS: BASOPHILS % (AUTO) 1 % (0-1); EOSINOPHILS % (AUTO) 1 % (1-7); LYMPHOCYTES % (AUTO) 16 % (22-44); MEAN CORPUSCULAR HEMOGLOBIN 29.3 pg (27.5-34.5); MEAN CORPUSCULAR HGB CONC 33.5 g/dL (33.2-36.2); MEAN PLATELET VOLUME 6.9 fL (7.4-10.4); MONOCYTES % (AUTO) 8 % (2-9); NEUTROPHILS % (AUTO) 75 % (42-75); PLATELET COUNT 570 x10^3/uL (130-400); RED CELL DISTRIBUTION WIDTH 14.7 % (9.4-14.8)
[2020-03-07 05:47] LABS: MD NO
[2020-03-07 05:57] LABS: ANION GAP 5 mmol/L (5-15); CALCIUM 8.1 mg/dL (8.5-10.1); CHLORIDE 100 mmol/L (98-107)
[2020-03-07 06:09] LABS: C-REACTIVE PROTEIN, QUANT 4.42 mg/dL (0.02-0.49); CREATININE 0.61 mg/dL (0.7-1.3)
[2020-03-07 07:06] LABS: SEDIMENTATION RATE > 120 mm/hr (0-10)
[2020-03-07 07:16] VITALS: BP 167/79
[2020-03-07] MEDS: LOSARTAN 50MG TABLET PO SCH (07:55)
[2020-03-07] MEDS: CARVEDILOL 25 MG TABLET PO SCH (07:55)
[2020-03-07] MEDS: RIFAMPIN 300 MG CAPSULE PO SCH ×2 (07:55→18:11)
[2020-03-07] MEDS: CLOPIDOGREL 75 MG TABLET PO SCH (07:56)
[2020-03-07] MEDS: CALCIUM POLYCARBOPHIL 625 MG TABLET PO SCH (07:56)
[2020-03-07] MEDS: ENOXAPARIN 40 MG/0.4 ML SQ SCH (12:16)
[2020-03-07 13:32] VITALS: BP 145/63
[2020-03-07] MEDS ORDERED: DAPTOMYCIN 600 MG in SODIUM CHLORIDE 0.9% 100 ML IV ONE (17:00)
[2020-03-07] MEDS ORDERED: CARV25TA12 PO (17:44)
[2020-03-07] MEDS ORDERED: RIFA300C3 PO (17:44)
[2020-03-07] MEDS ORDERED: LOSA50TA2 PO (17:44)
[2020-03-07] MEDS ORDERED: CLOP75TA PO (17:44)
[2020-03-07] MEDS ORDERED: OXYC-302 PO (18:03)
[2020-03-07] MEDS ORDERED: ASPI-515 PO (18:12)
[2020-03-10] MEDS ORDERED: CLOP75TA52 PO (01:59)
== END 2020-03-07 18:33 | disposition home health service (06) | DRG 485 ==
LOC: ED 12:50 → 4NE 14:20 → ED 17:17
PROVIDERS: ADMIT Internal Medicine; ATTEND Internal Medicine
PROC: 0S9D0ZZ Drainage of Left Knee Joint, Open Approach (ICD-10-PCS; 2020-02-26)
PROC: 0SPC09Z Removal of Liner from Right Knee Joint, Open Approach (ICD-10-PCS; 2020-02-26)
PROC: 0SUV09Z Supplement Right Knee Joint, Tibial Surface with Liner, Open Approach (ICD-10-PCS; 2020-02-26)
PROC: 0SBC0ZZ Excision of Right Knee Joint, Open Approach (ICD-10-PCS; principal; 2020-02-26 14:00)
PROC: 02HV33Z Insertion of Infusion Device into Superior Vena Cava, Percutaneous Approach (ICD-10-PCS; 2020-03-01)
PROC: B5181ZA Fluoroscopy of Superior Vena Cava using Low Osmolar Contrast, Guidance (ICD-10-PCS; 2020-03-01)
PROC: B548ZZA Ultrasonography of Superior Vena Cava, Guidance (ICD-10-PCS; 2020-03-01)
DX: T84.53XA Infection and inflammatory reaction due to internal right knee prosthesis, initial encounter (principal); A41.01 Sepsis due to Methicillin susceptible Staphylococcus aureus; J96.01 Acute respiratory failure with hypoxia; E87.2 Acidosis; E87.1 Hypo-osmolality and hyponatremia; M00.061 Staphylococcal arthritis, right knee; Z96.652 Presence of left artificial knee joint; Z87.891 Personal history of nicotine dependence; Z20.828 Contact with and (suspected) exposure to other viral communicable diseases; Y83.1 Surgical operation with implant of artificial internal device as the cause of abnormal reaction of the patient, or of later complication, without mention of misadventure at the time of the procedure; I25.82 Chronic total occlusion of coronary artery; I25.10 Atherosclerotic heart disease of native coronary artery without angina pectoris; I08.3 Combined rheumatic disorders of mitral, aortic and tricuspid valves; E78.5 Hyperlipidemia, unspecified; D64.9 Anemia, unspecified; E66.9 Obesity, unspecified; I10 Essential (primary) hypertension; Z82.49 Family history of ischemic heart disease and other diseases of the circulatory system; Z95.5 Presence of coronary angioplasty implant and graft
CPT/HCPCS: 36415; 36573; 71045; 71275; 80048; 80053; 80061; 81003; 82550; 83036; 83605; 83735; 84439; 84443; 85025; 85651; 85810; 86140; 87040; 87070; 87075; 87077; 87102; 87116; 87147; 87176; 87186; 87205; 87206; 87635; 89050; 89060; 93005; 93306; 96374; 96375; 96376; 99285; G0378; J0171; J0690; J0696; J0878; J1170; J1650; J2405; J2704; J3010; J3370; Q9967; C1751; C1776; J0330; J0360; J2270; J2370; J7030; J7040; Q0163

== ENCOUNTER → 2021-01-24 | Outpatient (CLI) | payer MEDICARE | END | disposition home or self-care (01) | LOC: STAR 14:57 | PROVIDERS: ATTEND Anesthesiology | DX: Z01.818 Encounter for other preprocedural examination (principal); Z01.812 Encounter for preprocedural laboratory examination; Z01.89 Encounter for other specified special examinations; R79.1 Abnormal coagulation profile; I25.2 Old myocardial infarction ==